=== PATIENT | female | born 1970 | race Caucasian/White ===

== ENCOUNTER 2016-09-24 16:30 | Outpatient (CLI) | payer OTHER ==
--- NOTE | 2016-09-24 17:01 | DIAGNOSTIC IMAGING REPORT ---
PROCEDURE: XR LUMBAR SPINE 5 VIEWS INDICATION: LOW BACK PAIN TECHNIQUE: Five views of the lumbar spine including bilateral obliques. COMPARISON: None. FINDINGS: Five lumbar-type vertebral bodies are present. Normal vertebral body height without fracture. Grade 1 anterolisthesis L4-5. Normal transverse alignment. Mildly decreased disc spacing of anterior L4-5 and mild diffuse decreased disc space L5-S1. The visible osseous pelvis and bowel gas pattern are normal. Oblique views demonstrate no pars defects. No significant facet hypertrophy or sclerosis. IMPRESSION: 1. Intact lumbar spine. 2. Minor L4-5 spondylolisthesis. 3. Mild disc height loss L4-5 and L5-S1.
== END 2016-09-24 23:00 | disposition home or self-care (01) ==
LOC: XR SRH 16:30
DX: M43.16 Spondylolisthesis, lumbar region (principal); M51.37 Other intervertebral disc degeneration, lumbosacral region

== ENCOUNTER 2016-09-26 08:35 | Emergency (ER) | payer OTHER ==
--- NOTE | 2016-09-26 10:40 | ED ORDER SUMMARY ---
..... Patient: COOPER CADET OrderSheet [facility] VisitID: [id number] [address] [place] [address] 45y, F Registration Date/Time: 09/26/2016 ORDER SHEET Weight: 59.8 kg (stated) Allergies: Imitrex, Zomig GENERAL ORDERS: MEDICATION ORDERS: Percocet PO 5/325 mg x 2 tabs (NOW) (09:36 09/26/2016 Douglas DAVIS) (9:46 GMarshall R.N.) Valium PO 5 mg (NOW) (09:37 09/26/2016 Douglas DAVIS) (9:46 GMarshall R.N.) IV FLUIDS: ORDER SHEET NOTES: [Electronically signed by Kelly Mary R.N. (11:20 09/26/2016)] [Electronically signed by Adolph Carrero MD (23:50 09/27/2016)] [Electronically locked/signed by Kelly Mary R.N. (11:20 09/26/2016)]
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
--- NOTE | 2016-09-26 10:40 | ED ORDER SUMMARY ---
..... Patient: COOPER CADET OrderSheet [facility] VisitID: [id number] [address] [place] [address] 45y, F Registration Date/Time: 09/26/2016 ORDER SHEET Weight: 59.8 kg (stated) Allergies: Imitrex, Zomig GENERAL ORDERS: MEDICATION ORDERS: Percocet PO 5/325 mg x 2 tabs (NOW) (09:36 09/26/2016 Douglas DAVIS) (9:46 GMarshall R.N.) Valium PO 5 mg (NOW) (09:37 09/26/2016 Douglas DAVIS) (9:46 GMarshall R.N.) IV FLUIDS: ORDER SHEET NOTES: [Electronically signed by Kelly Mary R.N. (11:20 09/26/2016)] [Electronically signed by Adolph Carrero MD (23:50 09/27/2016)] [Electronically locked/signed by Kelly Mary R.N. (11:20 09/26/2016)]
--- NOTE | 2016-09-27 23:50 | ED MED RECONCILIATION SUMMARY ---
Patient: COOPER CADET Medication Reconciliation Report [facility] VisitID: [id number] [address] [place] [address] 45y, F Registration Date/Time: 09/26/2016 Weight: 59.8 kg Height/Length: 63 in. BMI: 23.4 ALLERGIES: Imitrex, Zomig The patient's Home Medications are listed below: THE FOLLOWING MEDICATIONS NEED TO BE RECONCILED: Amitriptyline HCl Oral Excedrin Migraine Oral Naproxen Oral PROzac Oral The source(s) of the original Home Medication information: patient The following Medications were given to the patient in the Emergency Department: Percocet [PO] PO 2 tab, administered: 09/26/2016 9:41:00 AM Valium [PO] PO 5 mg, administered: 09/26/2016 9:41:00 AM The following Medications were prescribed to the patient: Hydrocodone/APAP 5mg / 325mg: take 1-2 orally every 4 hours as needed for pain. Dispense twenty-five (25). No refill. -- Adolph Carrero MD Robaxin 750 mg: Take 2 orally every 6 hours as needed for muscle spasm. Dispense thirty (30). No refills. Substitution is permissible. -- Adolph Carrero MD
--- NOTE | 2016-09-27 23:50 | ED MED RECONCILIATION SUMMARY ---
Patient: COOPER CADET Medication Reconciliation Report [facility] VisitID: [id number] [address] [place] [address] 45y, F Registration Date/Time: 09/26/2016 Weight: 59.8 kg Height/Length: 63 in. BMI: 23.4 ALLERGIES: Imitrex, Zomig The patient's Home Medications are listed below: THE FOLLOWING MEDICATIONS NEED TO BE RECONCILED: Amitriptyline HCl Oral Excedrin Migraine Oral Naproxen Oral PROzac Oral The source(s) of the original Home Medication information: patient The following Medications were given to the patient in the Emergency Department: Percocet [PO] PO 2 tab, administered: 09/26/2016 9:41:00 AM Valium [PO] PO 5 mg, administered: 09/26/2016 9:41:00 AM The following Medications were prescribed to the patient: Hydrocodone/APAP 5mg / 325mg: take 1-2 orally every 4 hours as needed for pain. Dispense twenty-five (25). No refill. -- Adolph Carrero MD Robaxin 750 mg: Take 2 orally every 6 hours as needed for muscle spasm. Dispense thirty (30). No refills. Substitution is permissible. -- Adolph Carrero MD
--- NOTE | 2016-09-27 23:50 | ED MAR SUMMARY ---
..... Medication Administration Record [facility] [address] [place] [address] Patient: COOPER CADET Visit ID: [id number] 45y, F Weight: 59.8 kg Height/Length: 63 in BMI: 23.4 ALLERGIES: Imitrex, Zomig Given :09/26/2016 Zia Sepulveda R.N. Medication Administered: PERCOCET [PO] (OXYCODONE-ACETAMINOPHEN), Dose: 2 tab 10/650 mg Tablets PO. Medication Ordered: Percocet PO 5/325 mg x 2 tabs (NOW). Given :09/26/2016 Zia Sepulveda R.N. Medication Administered: VALIUM [PO] (DIAZEPAM), Dose: 5 mg Tablets PO. Medication Ordered: Valium PO 5 mg (NOW).
--- NOTE | 2016-09-27 23:50 | ED DISCHARGE INSTRUCTIONS ---
Patient: COOPER CADET General Instructions [facility] VisitID: [id number] [address] [place] [address] 45y, F Registration Date/Time: 09/26/2016 Acute right sided and left sided lumbar radiculopathy. Muscle strain of the low back. INSTRUCTIONS (ACTIVE REST ICE, CONTINUE NAPROSYN AND ADD ROBAXIN AND HYDROCODONE YOU HAVE A DISK INJURY WHICH WILL PROBABLY HEAL ON ITS OWN BUT THERE IS A SMALL CHANCE IT MAY NEED SURGERY). Prescription Medications: Hydrocodone/APAP 5mg / 325mg: take 1-2 orally every 4 hours as needed for pain. Dispense twenty-five (25). No refill. Robaxin 750 mg: Take 2 orally every 6 hours as needed for muscle spasm. Dispense thirty (30). No refills. Substitution is permissible. Follow-up: Follow up with your doctor in six days. Understanding of the discharge instructions verbalized by patient. ADDITIONAL INFORMATION Back Pain [Acute Or Chronic] Back pain is usually caused by an injury to the muscles or ligaments of the spine. Sometimes the disks that separate each bone in the spine may bulge and cause pain by pressing on a nearby nerve. Back pain may also appear after a sudden twisting/bending force (such as in a car accident), after a simple awkward movement, or lifting something heavy with poor body positioning. In either case, muscle spasm is often present and adds to the pain. Acute back pain usually gets better in one to two weeks. Back pain related to disk disease, arthritis in the spinal joints or spinal stenosis (narrowing of the spinal canal) can become chronic and last for months or years. Unless you had a physical injury (for example, a car accident or fall) X-rays are usually not ordered for the initial evaluation of back pain. If pain continues and does not respond to medical treatment, x-rays and other tests may be performed at a later time. Home Care: You may need to stay in bed the first few days. But, as soon as possible, begin sitting or walking to avoid problems with prolonged bed rest (muscle weakness, worsening back stiffness and pain, blood clots in the legs). When in bed, try to find a position of comfort. A firm mattress is best. Try lying flat on your back with pillows under your knees. You can also try lying on your side with your knees bent up towards your chest and a pillow between your knees. Avoid prolonged sitting. This puts more stress on the lower back than standing or walking. During the first two days after injury, apply an ICE PACK to the painful area for 20 minutes every 2-4 hours. This will reduce swelling and pain. HEAT (hot shower, hot bath or heating pad) works well for muscle spasm. You can start with ice, then switch to heat after two days. Some patients feel best alternating ice and heat treatments. Use the one method that feels the best to you. You may use acetaminophen (Tylenol) or ibuprofen (Motrin, Advil) to control pain, unless another pain medicine was prescribed. [NOTE: If you have chronic liver or kidney disease or ever had a stomach ulcer or GI bleeding, talk with your doctor before using these medicines.] Be aware of safe lifting methods and do not lift anything over 15 pounds until all the pain is gone. Follow Up with your doctor or this facility if your symptoms do not start to improve after one week. Physical therapy may be needed. [NOTE: If X-rays were taken, they will be reviewed by a radiologist. You will be notified of any new findings that may affect your care.] Get Prompt Medical Attention if any of the following occur: Pain becomes worse or spreads to your legs Weakness or numbness in one or both legs Loss of bowel or bladder control Numbness in the groin or genital area Sciatica Sciatica ("Lumbar Radiculopathy") causes a pain that spreads from the lower back down into the buttock, hip and leg. Sometimes leg pain can occur without any back pain. Sciatica is due to irritation or pressure on a spinal nerve as it comes out of the spinal canal. This is most often due to a bulge or rupture of a nearby spinal disk (the cartilage cushion between each spinal bone), which presses on a nearby nerve. Other causes include spinal stenosis (narrowing of the spinal canal) and spasm of the pyriform muscle (a muscle in the buttocks that the sciatic nerve passes through). Sciatica may begin after a sudden twisting/bending force (such as in a car accident), or sometimes after a simple awkward movement. In either case, muscle spasm is commonly present and contributes to the pain. The diagnosis of sciatica is made from the symptoms and physical exam. Unless you had a physical injury (such as a car accident or fall), X-rays are usually not ordered for the initial evaluation of sciatica because the nerves and disks cannot be seen on an x-ray. If signs of a compressed nerve are present (for example, loss of tendon reflex or strength in the leg), an MRI (magnetic resonance imaging) scan will need to be scheduled as an outpatient. Most sciatica (80-90%) gets better with medicine, exercise, physical therapy. If symptoms continue after at least three months of medical treatment, surgery may be considered. Home Care: You may need to stay in bed the first few days. But, as soon as possible, begin sitting or walking to avoid problems with prolonged bed rest. When in bed, try to find a position of comfort. A firm mattress is best. Try lying flat on your back with pillows under your knees. You can also try lying on your side with your knees bent up towards your chest and a pillow between your knees. Avoid prolonged sitting. This puts more stress on the lower back than standing or walking. Some persons find relief with heat (hot shower, hot bath or heating pad) and massage, while others prefer cold packs (crushed or cubed ice in a plastic bag, wrapped in a towel). Try both and use the method that feels best for 20 minutes several times a day. You may use acetaminophen (Tylenol) or ibuprofen (Motrin, Advil) to control pain, unless another pain medicine was prescribed. [ NOTE: If you have chronic liver or kidney disease or ever had a stomach ulcer or GI bleeding, talk with your doctor before using these medicines.] Be aware of safe lifting methods and do not lift anything over 15 pounds until all the pain is gone. Follow Up with your doctor or this facility if your symptoms do not start to improve after one week. Physical therapy or further testing may be needed. [NOTE: If X-rays were taken, they will be reviewed by a radiologist. You will be notified of any new findings that may affect your care.] Get Prompt Medical Attention if any of the following occur: Pain becomes worse, not controlled by the prescribed medicine Weakness or numbness in one or both legs Numbness in the groin, genital area Loss of bowel or bladder control Hydrocodone Bitartrate, Acetaminophen Oral tablet What is this medicine? ACETAMINOPHEN; HYDROCODONE (a set a RAMONA delia fen; glen droe KOE done) is a pain reliever. It is used to treat mild to moderate pain. How should I use this medicine? Take this medicine by mouth. Swallow it with a full glass of water. Follow the directions on the prescription label. If the medicine upsets your stomach, take the medicine with food or milk. Do not take more than you are told to take. Talk to your forge press operator regarding the use of this medicine in children. This medicine is not approved for use in children. What side effects may I notice from receiving this medicine? Side effects that you should report to your doctor or health home care manager rn as soon as possible: allergic reactions like skin rash, itching or hives, swelling of the face, lips, or tongue breathing problems confusion feeling faint or lightheaded, falls stomach pain yellowing of the eyes or skin Side effects that usually do not require medical attention (report to your doctor or health home care manager rn if they continue or are bothersome): nausea, vomiting stomach upset What may interact with this medicine? alcohol antihistamines isoniazid medicines for depression, anxiety, or psychotic disturbances medicines for sleep muscle relaxants naltrexone narcotic medicines (opiates) for pain phenobarbital ritonavir tramadol What if I miss a dose? If you miss a dose, take it as soon as you can. If it is almost time for your next dose, take only that dose. Do not take double or extra doses. Where should I keep my medicine? Keep out of the reach of children. This medicine can be abused. Keep your medicine in a safe place to protect it from theft. Do not share this medicine with anyone. Selling or giving away this medicine is dangerous and against the law. Store at room temperature between 15 and 30 degrees C (59 and 86 degrees F). Protect from light. Keep container tightly closed. Throw away any unused medicine after the expiration date. Discard unused medicine and used packaging carefully. Pets and children can be harmed if they find used or lost packages. What should I tell my health care provider before I take this medicine? They need to know if you have any of these conditions: brain tumor Crohn's disease, inflammatory bowel disease, or ulcerative colitis drink more than 3 alcohol-containing drinks per day drug abuse or addiction head injury heart or circulation problems kidney disease or problems going to the bathroom liver disease lung disease, asthma, or breathing problems an unusual or allergic reaction to acetaminophen, hydrocodone, other opioid analgesics, other medicines, foods, dyes, or preservatives or trying to get breast-feeding What should I watch for while using this medicine? Tell your doctor or health home care manager rn if your pain does not go away, if it gets worse, or if you have new or a different type of pain. You may develop tolerance to the medicine. Tolerance means that you will need a higher dose of the medicine for pain relief. Tolerance is normal and is expected if you take the medicine for a long time. Do not suddenly stop taking your medicine because you may develop a severe reaction. Your body becomes used to the medicine. This does NOT mean you are addicted. Addiction is a behavior related to getting and using a drug for a non-medical reason. If you have pain, you have a medical reason to take pain medicine. Your doctor will tell you how much medicine to take. If your doctor wants you to stop the medicine, the dose will be slowly lowered over time to avoid any side effects. You may get drowsy or dizzy when you first start taking the medicine or change doses. Do not drive, use machinery, or do anything that may be dangerous until you know how the medicine affects you. Stand or sit up slowly. There are different types of narcotic medicines (opiates) for pain. If you take more than one type at the same time, you may have more side effects. Give your health care provider a list of all medicines you use. Your doctor will tell you how much medicine to take. Do not take more medicine than directed. Call emergency for help if you have problems breathing. The medicine will cause constipation. Try to have a bowel movement at least every 2 to 3 days. If you do not have a bowel movement for 3 days, call your doctor or health home care manager rn. Too much acetaminophen can be very dangerous. Do not take Tylenol (acetaminophen) or medicines that contain acetaminophen with this medicine. Many non-prescription medicines contain acetaminophen. Always read the labels carefully. You have been given the following additional information: Back Pain (Acute Or Chronic) Back Pain W/ Sciatica Hydrocodone Bitartrate, Acetaminophen Oral tablet (Electronically signed by Adolph Carrero MD 09/27/2016 23:50)
--- NOTE | 2016-09-27 23:50 | ED MAR SUMMARY ---
..... Medication Administration Record [facility] [address] [place] [address] Patient: COOPER CADET Visit ID: [id number] 45y, F Weight: 59.8 kg Height/Length: 63 in BMI: 23.4 ALLERGIES: Imitrex, Zomig Given :09/26/2016 Zia Sepulveda R.N. Medication Administered: PERCOCET [PO] (OXYCODONE-ACETAMINOPHEN), Dose: 2 tab 10/650 mg Tablets PO. Medication Ordered: Percocet PO 5/325 mg x 2 tabs (NOW). Given :09/26/2016 Zia Sepulveda R.N. Medication Administered: VALIUM [PO] (DIAZEPAM), Dose: 5 mg Tablets PO. Medication Ordered: Valium PO 5 mg (NOW).
== END 2016-09-26 11:05 | disposition home or self-care (01) ==
LOC: ED SRH 08:35
DX: S39.012A Strain of muscle, fascia and tendon of lower back, initial encounter (principal); M54.16 Radiculopathy, lumbar region; X58.XXXA Exposure to other specified factors, initial encounter; Y93.9 Activity, unspecified; Y92.9 Unspecified place or not applicable; Y99.9 Unspecified external cause status; Z88.8 Allergy status to other drugs, medicaments and biological substances

== ENCOUNTER 2016-11-12 10:24 | Outpatient (CLI) | payer OTHER ==
--- NOTE | 2016-11-12 11:58 | DIAGNOSTIC IMAGING REPORT ---
PROCEDURE: MR LUMBAR SPINE W/O CONTRAST INDICATION: LOW BACK PAIN WITH BILATERAL SCIATICA TECHNIQUE: Noncontrast T1, T2, and STIR sagittal images. T1 and T2 axial images. COMPARISON: None. FINDINGS: L1-2: Normal. L2-3: Normal. L3-4: Mild spondylosis with disc space desiccation. L4-5: Mild spondylosis with a central disc bulge which is slightly greater on the right. L5-S1: Normal. IMPRESSION: 1. Mild bulging disc L4-5.
== END 2016-11-12 23:00 ==
LOC: MRI SRH 10:24
DX: M54.42 Lumbago with sciatica, left side (principal); M54.41 Lumbago with sciatica, right side; M51.26 Other intervertebral disc displacement, lumbar region

== ENCOUNTER 2017-01-25 12:27 | Outpatient (CLI) | payer OTHER ==
--- NOTE | 2017-01-25 13:09 | DIAGNOSTIC IMAGING REPORT ---
PROCEDURE: DEXA BONE DENSITY STUDY CLINICAL INDICATION: Post hysterectomy, history of adult fractures, taking vitamin D and calcium supplementation COMPARISON: 10/08/2006 FINDINGS: LUMBAR SPINE: Bone mineral density 0.756 g/cm2, T score -2.6, osteoporosis, change from previous -15.9 percent, significant . LEFT HIP: Bone mineral density 0.658 g/cm2, T score -2.3 osteopenia, change from previous -6.2 percent, significant LEFT FEMORAL NECK: Bone mineral density 0.541 g/cm2, T score -2.8, osteoporosis, change from previous -10.6 percent . FRACTURE RISK CALCULATION ( when applicable): 10-year fracture risk not calculated due to T scores below -2.5. (T score greater or equal to -1.0 to: NORMAL) (T score from -1.1 to -2.4: OSTEOPENIA) (T score ess than or equal to -2.5: OSTEOPOROSIS) IMPRESSION: 1. Osteoporosis in the lumbar spine and left hip. 2. The patient is at high risk of fracture. 2. Significant interval decrease in bone mineral density in the lumbar spine and left hip compared to the prior study.
== END 2017-01-25 23:00 | disposition home or self-care (01) ==
LOC: XR SRH 12:27
DX: M81.0 Age-related osteoporosis without current pathological fracture (principal)